=== PATIENT | female | born 1960 | race African-American/Black ===

== ENCOUNTER 2023-06-03 09:52 | Emergency (ER) | payer BC ==
[2023-06-03] MEDS ORDERED: Ketorolac Tromethamine 30 MG (1 mL) VIAL ONE (10:35)
[2023-06-03] MEDS ORDERED: methylPREDNISolone Sod Succ 40 MG VIAL ONE (10:35)
[2023-06-03] MEDS ORDERED: Ondansetron PF 4 MG/2 ML Vial ONE (10:35)
[2023-06-03] MEDS ORDERED: Morphine 4 MG/ML VIAL ONE (10:35)
[2023-06-03 10:48] LABS: Anion Gap 18 mmol/L (10-20); BUN (Urea Nitrogen) 10 mg/dL (9.8-20.1); Calc. Creatinine Clearance 0 mL/min (70-130); Carbon Dioxide 25 mmol/L (23-31); Chloride 98 mmol/L (98-107); Estimated GFR 60; Glucose 87 mg/dL (80-115); Potassium 3.6 mmol/L (3.5-5.1); Sodium 137 mmol/L (136-145)
[2023-06-03 10:57] LABS: Hematocrit 42.1 % (36.0-47.0); Lymphocytes 29 % (21-51); MDiff Complete? YES; Macrocytosis SLIGHT = 6-15 cells (100X) (0-5/hpf); Mean Corpuscular HGB CONC 35.6 g/dL (32.0-36.0); Mean Corpuscular Hemoglobin 39.4 pg (27.0-31.0); Mean Platelet Volume 5.9 fL (7.4-10.4); Monocytes 2 % (0-10); Neutrophil 69 % (42-75); Platelet Count 262 10x3/uL (130-400); RBC Distribution Width 13.5 % (11.5-14.5); White Blood Cell (WBC) Count 11.8 10x3/uL (4.8-10.8)
== END 2023-06-03 12:35 | disposition home or self-care (01) ==
LOC: BURERS 09:52
DX: M54.32 Sciatica, left side (principal); E03.9 Hypothyroidism, unspecified
CPT/HCPCS: 36415; 80048; 85025; 86140; 99283; J1885; J2270; J2405; J2920